=== PATIENT | female | born 1945 | race American Indian/Alaskan Native ===

== ENCOUNTER 2019-01-11 09:35 | Emergency (ER) | payer MEDICARE ==
--- NOTE | 2019-01-11 11:46 | Emergency Department Report ---
HPI - General Chief Complaint: Tube Replacement Time Seen by Provider: 01/11/19 10:36 - HPI HPI: Room 25 The patient is a 73-year-old female sent from [facility] for tube replacement. Patient was sent from the half-way with her G-tube missing. No G-tube was sent with the patient and attempts to contact nursing staff at [facility] were unsuccessful. Location: [See above] Duration: [See above] Quality: [See above] Severity: [See above] Timing: [See above] Context: [See above] Modifying factors: [See above] Associated signs and symptoms: [see above] ED Past Medical Hx - Past Medical History Previous Medical History?: Yes Hx Hypertension: Yes Hx Diabetes: Yes Hx Dementia: Yes - Surgical History Past Surgical History?: No Additional Surgical History: Feeding tube - Family History Family history: no significant - Social History Smoking Status: Unknown if ever smoked Substance Use Type: None ED Review of Systems ROS: Stated complaint: G TUBE OUT OF PLACE Other details as noted in HPI Comment: Unobtainable due to pts medical conditions Physical Exam - Physical Exam Vital Signs: Vital Signs 01/11/19 10:04 Temperature 98.8 F Pulse Rate 97 H Respiratory 16 Rate Blood Pressure 135/71 O2 Sat by Pulse 100 Oximetry Physical Exam: GENERAL: The patient is well-developed well-nourished female lying on stretcher resting comfortably not appearing to be in acute distress. [] HEENT: Normocephalic. Atraumatic. Patient has moist mucous membranes. NECK: Trachea midline CHEST/LUNGS: Clear to auscultation. There is no respiratory distress noted. HEART/CARDIOVASCULAR: Regular. There is no tachycardia. ABDOMEN: Abdomen is soft, nontender. Patient has normal bowel sounds. There is no abdominal distention. SKIN: There is no rash. There is no edema. There is no diaphoresis. NEURO: The patient is awake. Patient nonverbal MUSCULOSKELETAL: There is no evidence of acute injury. ED Course Vital Signs 01/11/19 10:04 Temperature 98.8 F Pulse Rate 97 H Respiratory 16 Rate Blood Pressure 135/71 O2 Sat by Pulse 100 Oximetry - Feeding Tube Replacement Reason for Replacement: other (history not reported by half-way staff but feeding tube was not in place) Type of Tube: gastrostomy Insertion Site Prior to Procedure: clean Tube Used for Reinsertion: other (16 Vietnamese feeding tube) Vietnamese Tube Size (F): 16 Balloon Size (mls): 5 Verification of Placement: gastrograffin injection Tube Secured by: tape/dressing Patient Tolerated Procedure: well ED Medical Decision Making - Radiology Data Radiology results: image reviewed (G-tube study x-ray) interpreted by me: G-tube study [id number] in appropriate location - Differential Diagnosis G-tube preplacement Critical care attestation.: If time is entered above; I have spent that time in minutes in the direct care of this critically ill patient, excluding procedure time. ED Disposition Clinical Impression: Encounter for feeding tube placement Disposition: DC/TX-70 ANOTHER TYPE HLTHCARE Is pt being admited?: No Does the pt Need Aspirin: No Condition: Stable Additional Instructions: Return to the emergency department should you develop worsening symptoms, inability to tolerate food or liquids, high fever or any other concerns Referrals: ANGELIKA BRENNAN MD [Primary Care Provider] - 3-5 Days Time of Disposition: 12:30
--- NOTE | 2019-01-11 13:26 | XRay Report ---
G-tube study 2 views INDICATION: Abdominal pain IMPRESSION: Injected contrast through the G-tube was seen throughout the stomach. Signer Name: Logan David MD Signed: 01/11/2019 1:22 PM Workstation Name: [email or web address]
[2019-01-11 17:03] VITALS: BP 134/76
== END 2019-01-11 15:15 | disposition home or self-care (01) ==
LOC: ED 09:35
DX: K94.23 Gastrostomy malfunction (principal); I10 Essential (primary) hypertension; E11.9 Type 2 diabetes mellitus without complications; F03.90 Unspecified dementia, unspecified severity, without behavioral disturbance, psychotic disturbance, mood disturbance, and anxiety; Z98.890 Other specified postprocedural states
CPT/HCPCS: 43762; 74018; 99282; Q9963

== ENCOUNTER 2019-10-12 10:31 | Inpatient (IN) | payer MEDICARE ==
[2019-10-12] MEDS ORDERED: SODIUM CHLORIDE 0.9% 500 ML 500 ML IV ONE ×2 (10:54→12:53)
[2019-10-12] MEDS ORDERED: VANCOMYCIN 1,000 MG in SODIUM CHLORIDE 0.9% 500 ML 500 ML IV ONE (10:54)
[2019-10-12] MEDS ORDERED: VANCOMYCIN PHARMACY TO DOSE IV SCH (11:00)
--- NOTE | 2019-10-12 11:02 | Emergency Department Report ---
ED General Adult HPI - General Stated complaint: HIGH GLUCOSE PUI?: Yes Time Seen by Provider: 10/12/19 10:52 - History of Present Illness Initial comments: Patient is a 74-year-old F Beninese female who is a resident at [facility] who has a past medical history of dementia hypertension diabetes who is presenting with fever and elevated blood glucose. [facility] was noted by jail staff to be breathing rapidly. Temperature was taken and was elevated. There is been no mention of nausea vomiting diarrhea. Patient was febrile in route. Patient is is not coughing but does have rapid respirations. Patient is a poor historian as she does have advanced dementia and is a DNR - Related Data Allergies Allergy/AdvReac Type Severity Reaction Status Date / Time No Known Allergies Allergy Unverified 01/11/19 10:14 ED Review of Systems ROS: Stated complaint: HIGH GLUCOSE Other details as noted in HPI Comment: Unobtainable due to pts medical conditions ED Past Medical Hx - Past Medical History Hx Hypertension: Yes Hx Diabetes: Yes Hx Dementia: Yes - Surgical History Additional Surgical History: Feeding tube - Social History Smoking Status: Unknown if ever smoked Substance Use Type: None ED Physical Exam - General General appearance: alert (yet non verbal as she does have advanced dementia) - Head Head exam: Present: atraumatic, normocephalic - Eye Eye exam: Present: normal appearance - ENT ENT exam: Present: mucous membranes moist - Neck Neck exam: Present: normal inspection - Respiratory Respiratory exam: Present: respiratory distress (tachypnea), rales, rhonchi. Absent: normal lung sounds bilaterally, wheezes - Cardiovascular Cardiovascular Exam: Present: normal rhythm, tachycardia. Absent: systolic murmur, diastolic murmur, rubs, gallop - GI/Abdominal GI/Abdominal exam: Present: soft, normal bowel sounds, other (G tube present). Absent: distended, tenderness, guarding - Extremities Exam Extremities exam: Present: normal inspection - Back Exam Back exam: Present: normal inspection - Neurological Exam Neurological exam: Present: alert, oriented X3 - Psychiatric Psychiatric exam: Present: normal affect, normal mood - Skin Skin exam: Present: warm, dry, intact, normal color. Absent: rash ED Course Vital Signs 10/12/19 11:25 Temperature 101.1 F H Pulse Rate 114 H Respiratory 47 H Rate Blood Pressure 105/63 [Left] O2 Sat by Pulse 98 Oximetry - Reevaluation(s) Reevaluation #1: 10/12/19 11:02 On arrival patient was tachycardic and tachypneic with a recent fever. Patient meets criteria for sepsis protocol. ED Medical Decision Making - Lab Data Result diagrams: 10/12/19 11:00 10/12/19 11:00 Lab Results 10/12/19 10/12/19 10/12/19 Range/Units 11:00 11:00 11:00 WBC 10.9 (4.5-11.0) K/mm3 RBC 3.49 L (3.65-5.03) M/mm3 Hgb 9.4 L (10.1-14.3) gm/dl Hct 35.3 (30.3-42.9) % MCV 101 H (79-97) fl MCH 27 L (28-32) pg MCHC 27 L (30-34) % RDW 16.6 H (13.2-15.2) % Plt Count 463 H (140-440) K/mm3 Lymph % (Auto) 17.6 (13.4-35.0) % [place] % (Auto) 5.0 (0.0-7.3) % Eos % (Auto) 3.6 (0.0-4.3) % Baso % (Auto) 1.0 (0.0-1.8) % Lymph # 1.9 (1.2-5.4) K/mm3 [place] # 0.5 (0.0-0.8) K/mm3 Eos # 0.4 (0.0-0.4) K/mm3 Baso # 0.1 (0.0-0.1) K/mm3 Seg Neutrophils % 72.8 H (40.0-70.0) % Seg Neutrophils # 7.9 H (1.8-7.7) K/mm3 APTT (24.2-36.6) Sec. D-Dimer (0-234) ng/mlDDU Sodium 156 H (137-145) mmol/L Potassium 5.4 H (3.6-5.0) mmol/L Chloride 109.2 H (98-107) mmol/L Carbon Dioxide 26 (22-30) mmol/L Anion Gap 26 mmol/L BUN 57 H (7-17) mg/dL Creatinine 1.2 (0.7-1.2) mg/dL Estimated GFR 53 ml/min BUN/Creatinine Ratio 48 % Glucose 1235 H* (65-100) mg/dL Calcium 9.7 (8.4-10.2) mg/dL Total Bilirubin 0.30 (0.1-1.2) mg/dL AST 15 (5-40) units/L ALT 10 (7-56) units/L Alkaline Phosphatase 140 H (35-129) units/L Lactate Dehydrogenase 228 H (91-180) units/L C-Reactive Protein 13.50 H (0.00-1.30) mg/dL NT-Pro-B Natriuret Pep 205.9 (0-900) pg/mL Total Protein 9.9 H (6.3-8.2) g/dL Albumin 3.3 L (3.9-5) g/dL Albumin/Globulin Ratio 0.5 % Procalcitonin 0.26 (<0.15) ng/mL 10/12/19 Range/Units 11:31 WBC (4.5-11.0) K/mm3 RBC (3.65-5.03) M/mm3 Hgb (10.1-14.3) gm/dl Hct (30.3-42.9) % MCV (79-97) fl MCH (28-32) pg MCHC (30-34) % RDW (13.2-15.2) % Plt Count (140-440) K/mm3 Lymph % (Auto) (13.4-35.0) % [place] % (Auto) (0.0-7.3) % Eos % (Auto) (0.0-4.3) % Baso % (Auto) (0.0-1.8) % Lymph # (1.2-5.4) K/mm3 [place] # (0.0-0.8) K/mm3 Eos # (0.0-0.4) K/mm3 Baso # (0.0-0.1) K/mm3 Seg Neutrophils % (40.0-70.0) % Seg Neutrophils # (1.8-7.7) K/mm3 APTT 25.4 (24.2-36.6) Sec. D-Dimer 4370.26 H (0-234) ng/mlDDU Sodium (137-145) mmol/L Potassium (3.6-5.0) mmol/L Chloride (98-107) mmol/L Carbon Dioxide (22-30) mmol/L Anion Gap mmol/L BUN (7-17) mg/dL Creatinine (0.7-1.2) mg/dL Estimated GFR ml/min BUN/Creatinine Ratio % Glucose (65-100) mg/dL Calcium (8.4-10.2) mg/dL Total Bilirubin (0.1-1.2) mg/dL AST (5-40) units/L ALT (7-56) units/L Alkaline Phosphatase (35-129) units/L Lactate Dehydrogenase (91-180) units/L C-Reactive Protein (0.00-1.30) mg/dL NT-Pro-B Natriuret Pep (0-900) pg/mL Total Protein (6.3-8.2) g/dL Albumin (3.9-5) g/dL Albumin/Globulin Ratio % Procalcitonin (<0.15) ng/mL - Radiology Data [facility] [address] [place] [address] XRay Report Signed Patient: ASHELY ROBERTS MR#: [id number] : 1945 Acct:[id number] Age/Sex: 74 / F ADM Date: 10/12/19 Loc: ED Attending Dr: Ordering Physician: IVAN JEFFERSON MD Date of Service: 10/12/19 Procedure(s): XR chest 1V ap Accession Number(s): [id number] cc: IVAN JEFFERSON MD Fluoro Time In Minutes: CHEST 1 VIEW INDICATION / CLINICAL INFORMATION: fever resp distress. COMPARISON: 02/24/2019 FINDINGS: SUPPORT DEVICES: None. HEART / MEDIASTINUM: No significant abnormality. LUNGS / PLEURA: Right lung is clear. Low lung volumes are seen with slight to moderate left basilar atelectasis. No acute infiltrates, edema or effusion. No pneumothorax. ADDITIONAL FINDINGS: No significant additional findings. IMPRESSION: 1. No significant change Signer Name: Noble Mejia MD Signed: 10/12/2019 11:15 AM Workstation Name: [id number] - Medical Decision Making Patient is a 74-year-old F Beninese female with advanced dementia who is presenting with fever and tachypnea with some mild respiratory distress. Patient's O2 sat was in the low 90s on arrival. She was placed on 2 L of oxygen. Patient noted to have a abnormal lung exam however chest x-ray was negative for acute process. Patient and review of her labs is dehydrated and after hydration and second chest x-ray will likely be needed to rule out infiltrates. Patient glucose was significant elevated and is suggestive of a hyperosmolar hyperglycemic state. Patient started on insulin drip and IV fluids. Patient's laboratory studies also show increase in her inflammatory markers and the patient is a person under investigation for COVID-19. Patient be admitted to the hospitalist service to the [facility]. Critical Care Time: Yes (45) Critical care attestation.: If time is entered above; I have spent that time in minutes in the direct care of this critically ill patient, excluding procedure time. ED Disposition Clinical Impression: Acute respiratory distress, Suspected COVID-19 virus infection, Hyperosmolality with hypernatremia, Hyperglycemia, Acute kidney injury Disposition: OP ADMIT IP TO THIS HOSP Is pt being admited?: Yes Does the pt Need Aspirin: No Condition: Stable Time of Disposition: 12:32
[2019-10-12 11:15] LABS: Basophils # (Auto) 0.1 K/mm3 (0.0-0.1); Eosinophils # (Auto) 0.4 K/mm3 (0.0-0.4); Eosinophils % (Auto) 3.6 % (0.0-4.3); Lymphocytes # (Auto) 1.9 K/mm3 (1.2-5.4); Lymphocytes % (Auto) 17.6 % (13.4-35.0); Mean Corpuscular HGB Conc 27 % (30-34); Mean Corpuscular Volume 101 fl (79-97); Monocytes # (Auto) 0.5 K/mm3 (0.0-0.8); Platelet Count 463 K/mm3 (140-440); Red Blood Count 3.49 M/mm3 (3.65-5.03); Red Cell Distribution Width 16.6 % (13.2-15.2)
--- NOTE | 2019-10-12 11:20 | XRay Report ---
CHEST 1 VIEW INDICATION / CLINICAL INFORMATION: fever resp distress. COMPARISON: 02/24/2019 FINDINGS: SUPPORT DEVICES: None. HEART / MEDIASTINUM: No significant abnormality. LUNGS / PLEURA: Right lung is clear. Low lung volumes are seen with slight to moderate left basilar a telectasis. No acute infiltrates, edema or effusion. No pneumothorax. ADDITIONAL FINDINGS: No significant additional findings. IMPRESSION: 1. No significant change Signer Name: Noble Mejia MD Signed: 10/12/2019 11:15 AM Workstation Name: [id number]
[2019-10-12 11:22] LABS: Hematocrit 35.3 % (30.3-42.9); Hemoglobin 9.4 gm/dl (10.1-14.3)
[2019-10-12] MEDS ORDERED: ACETAMINOPHEN 650 MG RECT SUPP PR ONE (11:24)
[2019-10-12] MEDS ORDERED: SODIUM CHLORIDE 0.9% 1000 ML 1,000 ML IV ONE ×2 (11:24→12:53)
[2019-10-12 11:53] LABS: Albumin 3.3 g/dL (3.9-5); C-Reactive Protein 13.5 mg/dL (0.00-1.30); Calcium 9.7 mg/dL (8.4-10.2)
[2019-10-12] MEDS ORDERED: CEFEPIME/NS 2 GM/100 ML 2 GM/100 ML BAG IV SCH ×3 (12:00→22:00)
[2019-10-12 12:08] LABS: Partial Thromboplastin Time 25.4 Sec. (24.2-36.6)
[2019-10-12] MEDS ORDERED: DEXTROSE 50% IN WATER (25GM) 50 ML SYRINGE IV PRN ×2 (12:15→19:37)
[2019-10-12] MEDS ORDERED: VANCOMYCIN 1,500 MG in SODIUM CHLORIDE 0.9% 500 ML 500 ML IV ONE (13:00)
[2019-10-12] MEDS ORDERED: INSULIN REGULAR, HUMAN 100 UNITS in SODIUM CHLORIDE 0.9% 99 ML IV SCH ×2 (13:00→20:00)
[2019-10-12 13:24] LABS: Calcium 9.4 mg/dL (8.4-10.2)
[2019-10-12 15:13] LABS: Calcium 9.2 mg/dL (8.4-10.2)
[2019-10-12 16:33] LABS: Calcium 9.1 mg/dL (8.4-10.2)
[2019-10-12 18:52] LABS: Calcium 9.3 mg/dL (8.4-10.2)
--- NOTE | 2019-10-12 19:01 | History and Physical Report ---
History of Present Illness Date of examination: 10/12/19 Date of admission: 10/12/19 12:33 Chief complaint: Fever and high blood glucose levels History of present illness: 74-year-old F Zimbabwean female who is a resident at [facility] who cifuentes past medical history of dementia hypertension diabetes who is presenting with fever and elevated blood glucose. Patient was noted by [facility] staff to be breathing rapidly. Temperature was taken and was elevated. There is been no mention of nausea vomiting diarrhea. Patient was febrile in route. Patient is is not coughing but does have rapid respirations. Patient is a poor historian as she does have advanced dementia and is a DNR - Past Medical History Hx Hypertension: Yes Hx Diabetes: Yes Hx Dementia: Yes - Surgical History Additional Surgical History: Feeding tube - Social History Smoking Status: Unknown if ever smoked Substance Use Type: None family history Unavailable Review of Systems ROS: Stated complaint: HIGH GLUCOSE Other details as noted in HPI Comment: Unobtainable due to pts medical conditions Medications and Allergies Allergies Allergy/AdvReac Type Severity Reaction Status Date / Time No Known Allergies Allergy Unverified 01/11/19 10:14 Active Meds: Active Medications Dextrose (D50w (25gm) Syringe) 0 ml IV Q30MIN PRN; Protocol PRN Reason: Hypoglycemia Insulin Human Regular 100 (units/ Sodium Chloride) 100 mls @ 1 mls/hr IV TITR RHONDA; Protocol Last Titration: 10/12/19 16:20 Dose: 8 units/hr, 8 mls/hr Documented by: Cefepime HCl (Cefepime/Ns 2 Gm/100 Ml) 2 gm in 100 mls @ 200 mls/hr IV Q12HR RHONDA; Protocol Vancomycin HCl 1,500 mg/ (Sodium Chloride) 530 mls @ 333.333 mls/hr IV Q24HR RHONDA Exam - Constitutional Vitals: Temp Pulse Resp BP Pulse Ox 101.1 F H 103 H 36 H 101/61 99 10/12/19 11:25 10/12/19 16:30 10/12/19 16:30 10/12/19 16:30 10/12/19 16:30 General appearance: Present: mild distress, well-nourished - EENT Eyes: Present: PERRL ENT: hearing intact, clear oral mucosa, other (Very dry mucous membranes) - Neck Neck: Present: supple, normal ROM - Respiratory Respiratory effort: normal Respiratory: bilateral: CTA - Cardiovascular Heart rate: 98 Rhythm: regular Heart Sounds: Present: S1 & S2. Absent: rub, click - Extremities Extremities: pulses symmetrical, No edema Peripheral Pulses: within normal limits - Abdominal General gastrointestinal: Present: soft, non-tender, non-distended, normal bowel sounds Female genitourinary: Present: normal - Rectal Rectal Exam: deferred - Integumentary Integumentary: Present: clear, warm, dry - Musculoskeletal Musculoskeletal: strength equal bilaterally, generalized weakness - Psychiatric Psychiatric: other (Lethargic) - Neurologic Neurologic: other (Altered and lethargic) - Allied Health Allied health notes reviewed: nursing, case management Results - Labs CBC & Chem 7: 10/12/19 11:00 10/12/19 21:26 Labs: Laboratory Last Values WBC 10.9 K/mm3 (4.5-11.0) 10/12/19 11:00 RBC 3.49 M/mm3 (3.65-5.03) L 10/12/19 11:00 Hgb 9.4 gm/dl (10.1-14.3) L 10/12/19 11:00 Hct 35.3 % (30.3-42.9) 10/12/19 11:00 MCV 101 fl (79-97) H 10/12/19 11:00 MCH 27 pg (28-32) L 10/12/19 11:00 MCHC 27 % (30-34) L 10/12/19 11:00 RDW 16.6 % (13.2-15.2) H 10/12/19 11:00 Plt Count 463 K/mm3 (140-440) H 10/12/19 11:00 Lymph % (Auto) 17.6 % (13.4-35.0) 10/12/19 11:00 [place] % (Auto) 5.0 % (0.0-7.3) 10/12/19 11:00 Eos % (Auto) 3.6 % (0.0-4.3) 10/12/19 11:00 Baso % (Auto) 1.0 % (0.0-1.8) 10/12/19 11:00 Lymph # 1.9 K/mm3 (1.2-5.4) 10/12/19 11:00 [place] # 0.5 K/mm3 (0.0-0.8) 10/12/19 11:00 Eos # 0.4 K/mm3 (0.0-0.4) 10/12/19 11:00 Baso # 0.1 K/mm3 (0.0-0.1) 10/12/19 11:00 Seg Neutrophils % 72.8 % (40.0-70.0) H 10/12/19 11:00 Seg Neutrophils # 7.9 K/mm3 (1.8-7.7) H 10/12/19 11:00 APTT 25.4 Sec. (24.2-36.6) 10/12/19 11:31 D-Dimer 4370.26 ng/mlDDU (0-234) H 10/12/19 11:31 VBG pH 7.278 (7.320-7.420) L 10/12/19 12:46 Sodium 160 mmol/L (137-145) H 10/12/19 18:10 Potassium 5.7 mmol/L (3.6-5.0) H 10/12/19 15:25 Chloride 117.5 mmol/L (98-107) H 10/12/19 18:10 Carbon Dioxide 24 mmol/L (22-30) 10/12/19 18:10 Anion Gap 24 mmol/L 10/12/19 15:25 BUN 57 mg/dL (7-17) H 10/12/19 18:10 Creatinine 1.1 mg/dL (0.7-1.2) 10/12/19 18:10 Estimated GFR 59 ml/min 10/12/19 18:10 BUN/Creatinine Ratio 52 % 10/12/19 18:10 Glucose 1121 mg/dL (65-100) H* 10/12/19 15:25 Lactic Acid 5.20 mmol/L (0.7-2.0) H* 10/12/19 15:25 Calcium 9.3 mg/dL (8.4-10.2) 10/12/19 18:10 Phosphorus 4.00 mg/dL (2.5-4.5) 10/12/19 12:41 Magnesium 3.10 mg/dL (1.7-2.3) H 10/12/19 12:41 Ferritin 581.5 ng/mL (13.0-400.0) H 10/12/19 11:00 Total Bilirubin 0.30 mg/dL (0.1-1.2) 10/12/19 11:00 AST 15 units/L (5-40) 10/12/19 11:00 ALT 10 units/L (7-56) 10/12/19 11:00 Alkaline Phosphatase 140 units/L (35-129) H 10/12/19 11:00 Lactate Dehydrogenase 228 units/L (91-180) H 10/12/19 11:00 C-Reactive Protein 13.50 mg/dL (0.00-1.30) H 10/12/19 11:00 NT-Pro-B Natriuret Pep 205.9 pg/mL (0-900) 10/12/19 11:00 Total Protein 9.9 g/dL (6.3-8.2) H 10/12/19 11:00 Albumin 3.3 g/dL (3.9-5) L 10/12/19 11:00 Albumin/Globulin Ratio 0.5 % 10/12/19 11:00 Procalcitonin 0.26 ng/mL (<0.15) 10/12/19 11:00 Short CBC 10/12/19 Range/Units 11:00 WBC 10.9 (4.5-11.0) K/mm3 Hgb 9.4 L (10.1-14.3) gm/dl Hct 35.3 (30.3-42.9) % Plt Count 463 H (140-440) K/mm3 BMP 10/12/19 10/12/19 10/12/19 11:00 12:41 14:41 Sodium 156 H 157 H 157 H Potassium 5.4 H 5.5 H 5.7 H Chloride 109.2 H 110.1 H 113.9 H Carbon Dioxide 26 28 24 BUN 57 H 60 H 60 H Creatinine 1.2 1.2 1.1 Glucose 1235 H* 1296 H* 1212 H* Calcium 9.7 9.4 9.2 10/12/19 10/12/19 10/12/19 15:25 18:10 19:50 Sodium 156 H 160 H 165 H* Potassium 5.7 H 5.9 H 4.8 Chloride 115.5 H 117.5 H 120.7 H Carbon Dioxide 22 24 27 BUN 58 H 57 H 58 H Creatinine 1.2 1.1 1.1 Glucose 1121 H* 881 H* 828 H* Calcium 9.1 9.3 9.2 10/12/19 21:26 Sodium 166 H* Potassium 4.8 Chloride 120.8 H Carbon Dioxide 24 BUN 57 H Creatinine 1.1 Glucose 674 H* Calcium 9.2 Liver Function 10/12/19 Range/Units 11:00 Total Bilirubin 0.30 (0.1-1.2) mg/dL AST 15 (5-40) units/L ALT 10 (7-56) units/L Alkaline Phosphatase 140 H (35-129) units/L Albumin 3.3 L (3.9-5) g/dL Microbiology: Microbiology 10/12/19 11:00 Peripheral/Venous Blood Culture - Preliminary Culture in Progress 10/12/19 11:00 Peripheral/Venous Blood Culture - Preliminary Culture in Progress - Imaging and Cardiology EKG: report reviewed Imaging and Cardiology: LUNGS / PLEURA: Right lung is clear. Low lung volumes are seen with slight to moderate left basilar atelectasis. No acute infiltrates, edema or effusion. No pneumothorax. ADDITIONAL FINDINGS: No significant additional findings . IMPRESSION: 1. No significant change Assessment and Plan Assessment and plan: The high probability OF a clinically significant sudden or life-threatening deterioration of the cardiorespiratory system and endocrine system required my full and direct attention, intervention and postoperative management. The aggregate critical care time was 40 minutes. The time is in addition to time spent performing reported procedures but includes the followin: Data review and interpretation 2: Patient assessment and monitoring of vital signs 3: Documentation 4:: Medication orders and management Advance Directives: Yes (Full code) VTE prophylaxis?: Chemical Plan of care discussed with patient/family: Yes - Patient Problems (1) Hyperosmolar non-ketotic state due to type 2 diabetes mellitus Current Visit: Yes Status: Acute Plan to address problem: Patient initiated on DKA protocol IV insulin IV D5W Blood glucose levels are very high and along with hypernatremia which indicates severe dehydration Poor prognosis (2) Hyperosmolality with hypernatremia Current Visit: Yes Status: Acute Plan to address problem: IV D5W Severe hypernatremia Poor prognosis (3) Sepsis Current Visit: Yes Status: Acute Plan to address problem: Sepsis protocol (4) Hyperkalemia Current Visit: Yes Status: Acute Plan to address problem: Treated in the emergency room and patient also on IV D5 normal saline and IV in sulin (5) Suspected 2019 novel coronavirus infection Current Visit: Yes Status: Acute Plan to address problem: Rule out coronavirus protocol initiated (6) Advance care planning Current Visit: Yes Status: Acute Plan to address problem: Patient is full code (7) Acute kidney injury Current Visit: Yes Status: Acute Plan to address problem: IV fluids for now Secondary to vasomotor nephropathy and volume depletion (8) DVT prophylaxis Current Visit: Yes Status: Acute Plan to address problem: On heparin 5000 every 12
[2019-10-12] MEDS ORDERED: METOCLOPRAMIDE 10 MG/2 ML INJ IV PRN (19:33)
[2019-10-12] MEDS ORDERED: HYDROmorphone 1 MG/1 ML INJ IV PRN (19:33)
[2019-10-12] MEDS ORDERED: ONDANSETRON 4 MG/2 ML INJ IV PRN (19:33)
[2019-10-12] MEDS ORDERED: ACETAMINOPHEN 325 MG TAB PO PRN (19:33)
[2019-10-12] MEDS ORDERED: POTASSIUM CHLORIDE 10 MEQ 10 MEQ/100 ML BAG IV SCH ×2 (20:00)
[2019-10-12] MEDS ORDERED: DEXTROSE 5% IN WATER 1,000 ML IV SCH (20:00)
[2019-10-12] MEDS ORDERED: POTASSIUM CHLORIDE 10 MEQ 10 MEQ/100 ML BAG IV PRN ×2 (20:00)
[2019-10-12 20:18] LABS: Calcium 9.2 mg/dL (8.4-10.2)
[2019-10-12 20:40] LABS: C-Reactive Protein 10.8 mg/dL (0.00-1.30)
[2019-10-12] MEDS ORDERED: CEFEPIME/NS 2 GM/100 ML 2 GM/100 ML BAG IV ONE (21:38)
[2019-10-12 21:58] LABS: Calcium 9.2 mg/dL (8.4-10.2)
[2019-10-12] MEDS ORDERED: FAMOTIDINE 20 MG/2 ML INJ IV SCH (22:00)
[2019-10-12] MEDS ORDERED: FAMOTIDINE 20 MG/2 ML INJ IV ONE (22:22)
[2019-10-13 01:23] VITALS: BP 92/26
--- NOTE | 2019-10-13 02:01 | Event Note ---
Date: 11/02/19 I was called to come and evaluated patient suspected to have . On examination patient was lying lifeless on her bed still hooked up to the c ardiac monitor with flatlines (Asystole) in 2 leads. Pupils were fixed and dilated, there were no spontaneous movement or respiration. Auscultation of the chest revealed no air movement, and auscultation of the heart revealed no cardiac impulses. Patient was pronounced at 1:20 AM
[2019-10-13] MEDS ORDERED: VANCOMYCIN 1,500 MG in SODIUM CHLORIDE 0.9% 500 ML 500 ML IV SCH (10:00)
[2019-10-13] MEDS ORDERED: IPRATROPIUM/ALBUTEROL SULFATE 3 ML AMPUL.NEB IH SCH (23:00)
--- NOTE | 2019-11-09 09:49 | Discharge Summary ---
SUMMARY DATE OF EXPIRATION: 10/13/2019 TIME: 1:20 a.m. HOSPITAL COURSE: The patient was admitted from [facility] for fever and high blood glucose levels. The patient had a high temperature too. The patient was admitted for sodium of 166 and glucose levels of 674. BUN and creatinine of 57 and 1.1. Admission diagnosis was hyperosmolar nonketotic state and diabetes mellitus, hyperosmolarity with hypernatremia, sepsis, hyperkalemia, suspected coronavirus infection. DNR was discussed, but the patient was kept full code. The patient did well for the next 4 hours and the patient had a sudden cardiac arrest and was found in asystole. The patient could not be revived. The patient was pronounced at 1:20 a.m. CAUSE OF : Cardiorespiratory failure secondary to hyperosmolar nonketotic state, sepsis, severe hypernatremia and possible coronavirus infection. certificate to be signed by Dr. Mccabe. Family informed. JOB# [id number] MISAEL/AYDEE
== END 2019-10-13 15:00 | DRG 871 ==
LOC: ED 10:31 → CC1 12:33
PROVIDERS: ADMIT Internal Medicine; ATTEND Internal Medicine
DX: A41.9 Sepsis, unspecified organism (principal); E11.00 Type 2 diabetes mellitus with hyperosmolarity without nonketotic hyperglycemic-hyperosmolar coma (NKHHC); N17.9 Acute kidney failure, unspecified; E87.0 Hyperosmolality and hypernatremia; R06.03 Acute respiratory distress; F03.90 Unspecified dementia, unspecified severity, without behavioral disturbance, psychotic disturbance, mood disturbance, and anxiety; I10 Essential (primary) hypertension; Z66 Do not resuscitate; E11.65 Type 2 diabetes mellitus with hyperglycemia; E87.5 Hyperkalemia; Z20.828 Contact with and (suspected) exposure to other viral communicable diseases; Z79.4 Long term (current) use of insulin
CPT/HCPCS: 36415; 71045; 80048; 80053; 82140; 82728; 82805; 83036; 83615; 83735; 83880; 84100; 84145; 85025; 85379; 85730; 86140; 87040; G0378; J0692; J1815; J3370; J7030; J7040